=== PATIENT | female | born 1980 | race African-American/Black ===

== ENCOUNTER 2022-02-20 12:45 | Emergency (ER) | payer BC ==
[~2022-02-20] VITALS: Ht 165.1 cm; Wt 136.0 kg
[~2022-02-20 12:45] MED LIST: FERROUS SULF325 M1 PO; LASIX 20 MG TAB20 MG PO; LISINOPRIL20 MG PO; LORTAB 5/3255 MG IO; LOSARTAN POTASS50 MG PO; METFORMIN500 MG PO; PRILOSEC20 MG/CAP PO
[2022-02-20 13:19] LABS: BASO% 0.5 % (0-3); EOS% 3.1 % (0-8); LYMPH% 34.4 % (15-41); MEAN CORPUSCULAR HGB 20.1 pG CALC (26.0-32.0); MEAN CORPUSCULAR HGB CONC 29.1 g/dL CAL (32.0-36.0); MONO% 11.4 % (2-13); NEUT# 2.09 thou/uL (2.00-7.15); NEUT% 50.6 % (42-76); RED BLOOD COUNT 3.73 mill/uL (4.20-5.60); RED CELL DISTRI WIDTH 17.3 % (11.5-15.5)
[2022-02-20 13:31] LABS: ALBUMIN 4.1 g/dL (3.2-5.0); ALKALINE PHOSPHATASE 49 u/l (38-126); ANION GAP 10 (6-22 (CALC)); BUN 11 mg/dL (7-17); BUN/CREATININE RATIO 15 (12-20 (CALC)); CARBON DIOXIDE 22 mmol/l (22-30); CHLORIDE 110 mmol/l (95-108); CREATININE 0.8 mg/dL (0.5-1.0); GFR FOR AFR.AMER. > 60 ML/MIN (>=60 (CALC)); GFR OTHER RACES > 60 ML/MIN (>=60 (CALC)); POTASSIUM 3.5 mmol/l (3.5-5.1); SGOT/AST 21 u/l (14-36); SODIUM 139 mmol/l (137-146); TOTAL PROTEIN 7.7 g/dL (6.3-8.2)
[2022-02-20 13:34] VITALS: BP 117/74
[2022-02-20 13:34] LABS: HEMATOCRIT 25.8 % (37.0-47.0); HEMOGLOBIN 7.5 g/dl (12.0-16.0); MEAN CELL VOLUME 69.2 fL CALC (80.0-100.0)
[2022-02-20 13:36] LABS: BILIRUBIN, TOTAL 0.1 mg/dL (0.0-1.4)
[2022-02-20 13:45] VITALS: BP 126/75
[2022-02-20 14:00] VITALS: BP 130/82
[2022-02-20 14:16] VITALS: BP 148/89
== END 2022-02-20 14:25 | disposition home or self-care (01) | DRG 312 ==
LOC: ED 12:45
PROVIDERS: Family Medicine
DX: R55 Syncope and collapse (principal)